=== PATIENT | female | born 1985 | race Caucasian/White ===

== ENCOUNTER 2018-11-09 11:10 | Inpatient (IN) ==
--- NOTE | 2018-11-09 12:13 | P.HP ---
History of Present Illness Service: LABOR AND DELIVERY Primary Care Physician: No Primary Care Physician Chief Complaint: OLIGHYDRAMIOUS/BREECH History of Present Illness: AMA (33 YOA), G2, 1SAB 37 WEEKS BPP 8/10, SEAN 3.5 BREECH GESTATIONAL DIABETES ON METFORMIN PRIOR TO DX, NORMOGLYCEMIC GBS IN URINE HX HSV WILL PROCEED WITH PRIMARY C SECTION - Diagnosis (1) Oligohydramnios (2) 37 weeks gestation of (3) Breech presentation (4) Gestational diabetes (5) Group B streptococcal bacteriuria Inpatient Certification: I certify that the inpatient services were ordered in accordance with Medicare regulations governing the order. This includes certification that hospital inpatient services are reasonable and necessary and in the case of services not specified as inpatient-only under 42 CFR 419.22(n), that they are appropriately provided as inpatient services in accordance to with the 2-midnight benchmark under 43 CFR 412.3(e) Estimated Total Length of Stay (Days): 3 Plans for Post Hospital Care: Home Review of Systems All other systems reviewed negative except as stated in HPI [facility] - History History Provided By: Medical Record - Medical / Surgical Hx Neg / Unobtainable Surgical History: No Previous Surgery - Medical History Medical History: Medical History (Last Updated 11/09/18 @ 12:02 by ARTEM Scott) Advanced maternal age (AMA) in Hx of herpes zoster virus - Family History Family History: Family History (Last Updated 11/09/18 @ 12:03 by ARTEM Scott) Father No problems noted. Grandparent Stroke Diabetes - Social History I have reviewed the patient's Social History: Yes - Tobacco History Second Hand Smoke Exposure: No Tobacco Use In Past 30 Days: No Smoking Status: Never smoker - Alcohol History How Often Do You Have a Drink Containing Alcohol: Never - Substance Use History Substance History: No History of Abuse - Travel History History of Recent Travel: No Recent Travel in the [place] Within the Last 8 Weeks: No Recent Travel Out of the Country Within the Last 8 Weeks: No Medications and Allergies Allergies Allergy/AdvReac Type Severity Reaction Status Date / Time No Known Allergies Allergy Unknown Uncoded 04/08/07 07:47 Exam Vital signs: Vital Signs 11/09/18 11:25 Temperature 98.5 F Pulse Rate 99 H Respiratory Rate 18 Blood Pressure 126/87 - Constitutional no acute distress - Routine HEENT Exam Head: Present: normocephalic ENT: Present: mucous membranes moist - Routine Respiratory Exam Present: CTA bilaterally - Routine Cardiovascular Exam Present: RRR, S1, S2 - Routine Abdominal Exam Present: soft, normoactive bowel sounds Comments: GRAVID - Routine Extremities Exam Present: edema Comments: +1 EDEMA TO LOWER EXTREMITIES - Routine Skin Exam Present: intact - Routine Neurological Exam Present: alert, oriented X3 Caprini VTE Risk Assessment Caprini VTE Risk Assessment: No/Low Risk (score <= 1) Caprini Risk Assessment Model: Point Value = 1 Point Value = 2 Point Value = 3 Point Value = 5 Age 41-60 Minor surgery BMI > 25 kg/m2 Swollen legs Varicose veins or History of unexplained or recurrent spontaneous Oral contraceptives or hormone replacement Sepsis (< 1 month) Serious lung disease, including pneumonia (< 1 month) Abnormal pulmonary function Acute myocardial infarction Congestive heart failure (< 1 month) History of inflammatory bowel disease Medical patient at bed rest Age 61-74 Arthroscopic surgery Major open surgery (> 45 min) Laparoscopic surgery (> 45 min) Malignancy Confined to bed (> 72 hours) Immobilizing plaster cast Central venous access Age >= 75 History of VTE Family history of VTE Factor V Leiden Prothrombin [id number] Lupus anticoagulant Anticardiolipin antibodies Elevated serum homocysteine Heparin-induced thrombocytopenia Other congenital or acquired thrombophilia Stroke (< 1 month) Elective arthroplasty Hip, pelvis, or leg fracture Acute spinal cord injury (< 1 month) Prophylaxis Regimen: Total Risk Factor Score Risk Level Prophylaxis Regimen 0-1 Low Early ambulation 2 Moderate Order ONE of the following: *Sequential Compression Device (SCD) *Heparin 5000 units SQ BID 3-4 Higher Order ONE of the following medications: *Heparin 5000 units SQ TID *Enoxaparin/Lovenox 40 mg SQ daily (WT < 150 kg, CrCl > 30 mL/min) *Enoxaparin/Lovenox 30 mg SQ daily (WT < 150 kg, CrCl > 10-29 mL/min) *Enoxaparin/Lovenox 30 mg SQ BID (WT < 150 kg, CrCl > 30 mL/min) AND/OR *Sequential Compression Device (SCD) 5 or more Highest Order ONE of the following medications: *Heparin 5000 units SQ TID (Preferred with Epidurals) *Enoxaparin/Lovenox 40 mg SQ daily (WT < 150 kg, CrCl > 30 mL/min) *Enoxaparin/Lovenox 30 mg SQ daily (WT < 150 kg, CrCl > 10-29 mL/min) *Enoxaparin/Lovenox 30 mg SQ BID (WT < 150 kg, CrCl > 30 mL/min) AND *Sequential Compression Device (SCD) Assessment and Plan - Assessment (1) Oligohydramnios Code(s): O41.00X0 - Oligohydramnios, unspecified trimester, not applicable or unspecified Status: Acute Plan: PRIMARY C SECTION (2) 37 weeks gestation of Code(s): Z3A.37 - 37 weeks gestation of Status: Acute Plan: DELIVERY (3) Breech presentation Code(s): O32.1XX0 - Maternal care for breech presentation, not applicable or unspecified Status: Acute Plan: PRIMARY C SECTION (4) Gestational diabetes Code(s): O24.419 - Gestational diabetes mellitus in , unspecified control Status: Acute Plan: MONITOR POST (5) Group B streptococcal bacteriuria Code(s): R82.71 - Bacteriuria Status: Acute - Plan FOUND IN URINE WITH 28 WEEK LABS, PRIMARY C SECTION, NO TREATMENT NEEDED Code Status: FULL CODE Discharge Planning: PLAN FOR HOME DC IN 3 DAYS (1) Oligohydramnios Qualifiers: Fetus number: single or unspecified fetus (3) Breech presentation Qualifiers: Fetus number: single or unspecified fetus Qualified Code(s): O32.1XX0 - Maternal care for breech presentation, not applicable or unspecified (4) Gestational diabetes Qualifiers: Gestational diabetes mellitus control: oral hypoglycemic-controlled
[2018-11-09] MEDS ORDERED: Citric Acid/Sodium Citrate Liq 30 ML UDC PO SCH (12:15)
[2018-11-09 12:46] LABS: Baso % (Auto) 0.2 % (0.0-2.0); Eos % (Auto) 0.3 % (0.0-4.0); Hematocrit 35.7 % (35.0-46.0); Hemoglobin 12.5 gm/dL (11.6-15.3); Lymph # (Auto) 1.1 th/mm3 (1.0-4.8); Lymph % (Auto) 11.8 % (9.0-44.0); Mean Corpuscular HGB Conc 35.1 % (32.0-36.0); Mean Corpuscular Hemoglobin 30.9 pg (27.0-34.0); Mean Corpuscular Volume 88.1 fL (80.0-100.0); Mean Platelet Volume 10.4 fL (7.0-11.0); Mono # (Auto) 0.3 th/mm3 (0.0-0.9); Mono % (Auto) 3.8 % (0.0-8.0); Neut # (Auto) 7.7 th/mm3 (1.8-7.7); Neut % (Auto) 83.9 % (16.0-70.0); Platelet Count 138 th/mm3 (150-450); Red Blood Count 4.06 mil/mm3 (4.00-5.30); Red Cell Distribution Width 13.8 % (11.6-17.2); White Blood Count 9.1 th/mm3 (4.0-11.0)
[2018-11-09 12:50] LABS: Bacteria,Urine Occasional /hpf; Bilirubin,Urine Negative (Negative); Clarity,Urine Cloudy (Clear); Color,Urine Yellow (Yellw/Straw); Glucose,Urine (UA) Negative (Negative); Leukocyte Esterase,Urine Large (Negative); Nitrite,Urine Negative (Negative); Specific Gravity,Urine 1.014 (1.002-1.035); Squamous Epithelial Cell,Urine 18 /hpf (0-5)
[2018-11-09] MEDS ORDERED: Morphine Sulfate PF Inj 5 MG/10 ML Ampul ONE (12:50)
[2018-11-09] MEDS ORDERED: fentaNYL Citrate Inj 100 MCG/2 ML Ampul ONE (12:50)
[2018-11-09] MEDS ORDERED: ceFAZolin 2 GM Premix Inj 2 GM/50 ML PIGGYBACK IV.SIG ONE (13:00)
[2018-11-09] MEDS ORDERED: Naloxone Inj 0.4 MG/ML Vial IV.PUSH PRN (13:40)
[2018-11-09] MEDS ORDERED: Zolpidem Tartrate 5 MG Tablet PO PRN (16:07)
[2018-11-09] MEDS ORDERED: Simethicone 80 MG Chew Tablet PO PRN (16:07)
--- NOTE | 2018-11-09 16:13 | P.OP ---
- Preoperative Diagnosis (1) Oligohydramnios (2) 37 weeks gestation of (3) Breech presentation (4) Gestational diabetes - Postoperative Diagnosis (1) Oligohydramnios (2) 37 weeks gestation of (3) Breech presentation (4) Gestational diabetes Date of procedure: 11/09/18 Procedure: Primary low transverse section Anesthesia: spinal Surgeon: Aleksandar Shirley MD Operation and Findings: Counts were correct Estimated blood loss 500 cc Findings normal female infant in the breech position with good normal tubes normal ovaries normal uterus. Procedure in detail Taken to the operating room identified by name band and verbally and given a regional anesthetic. She was prepped and draped in the usual sterile manner for a section. A time out was taken. A Pfannenstiel incision was made and carried down to the fascia the fascia was nicked bilaterally and the fascia was taken off the rectus muscle by blunt and sharp dissection. The rectus muscles were spread bluntly and the peritoneum was entered under direct vision. The incision was extended with care to avoid the urinary bladder. A bladder blade was placed and a bladder flap was created in the usual fashion. The lower uterine segment was then incised sharply in a transverse manner and taken down in the midline until the uterine cavity was entered. The incision was extended with the surgeon's fingers. The breech was grasped and with gentle fundal pressure the breech was delivered thorax was then delivered the arms were reduced and again with gentle fundal pressure the vertex was delivered without difficulty. The hypopharynx and nasopharynx were suctioned. The cord clamping was delayed 45 seconds and then the cord was clamped cut and the was handed over to the resuscitation team cord blood was obtained the placenta was removed manually and the uterus was curettaged twice with a wet lap. The uterus was delivered from the abdomen. The uterine incision was repaired with 0 Vicryl in a running fashion in 2 layers the second layer imbricating the first. The cul-de-sac and gutters were cleaned of blood and debris the uterus was delivered back into the abdomen. The rectus muscles were reapproximated with 0 Vicryl in a running the fascia was repaired with 0 Vicryl from lateral to midline bilaterally. The subcutaneous layer was repaired with a 3-0 Vicryl. The skin was repaired with a 4-0 Monocryl in a subcuticular manner. Patient tolerated the procedure well and went to recovery room in good condition.
[2018-11-09] MEDS ORDERED: Oxytocin 30 Units/500ml Premix 30 UNITS/500 ML BAG IV.SIG ONE (16:30)
[2018-11-09 20:55] VITALS: RESP 18
[2018-11-09] MEDS ORDERED: Oxytocin 30 Units/500ml Premix 30 UNITS/500 ML BAG IV.SIG PRN (21:07)
[2018-11-09] MEDS: ceFAZolin Inj 1 GM in Sodium Chlor 0.9% Inj 100 ML IV.SIG SCH (22:25)
[2018-11-10] MEDS: ceFAZolin Inj 1 GM in Sodium Chlor 0.9% Inj 100 ML IV.SIG SCH (05:35)
[2018-11-10 05:59] LABS: Baso % (Auto) 0.4 % (0.0-2.0); Eos # (Auto) 0.1 th/mm3 (0.0-0.4); Eos % (Auto) 0.5 % (0.0-4.0); Hematocrit 32.1 % (35.0-46.0); Hemoglobin 10.7 gm/dL (11.6-15.3); Lymph # (Auto) 0.9 th/mm3 (1.0-4.8); Lymph % (Auto) 8.6 % (9.0-44.0); Mean Corpuscular HGB Conc 33.5 % (32.0-36.0); Mean Corpuscular Volume 89.7 fL (80.0-100.0); Mean Platelet Volume 10.2 fL (7.0-11.0); Mono # (Auto) 0.6 th/mm3 (0.0-0.9); Mono % (Auto) 5.4 % (0.0-8.0); Neut # (Auto) 8.6 th/mm3 (1.8-7.7); Neut % (Auto) 85.1 % (16.0-70.0); Platelet Count 108 th/mm3 (150-450); Red Blood Count 3.58 mil/mm3 (4.00-5.30); Red Cell Distribution Width 13.4 % (11.6-17.2); White Blood Count 10.2 th/mm3 (4.0-11.0)
--- NOTE | 2018-11-10 08:05 | P.PNOB ---
Subjective Post op day: 1 Interval history: doing well, Objective Vital Signs/I&O: Vital Signs 11/09/18 11:25 11/09/18 13:13 11/09/18 13:14 Temperature 98.5 F 98.7 F Pulse Rate 99 H 82 Respiratory Rate 18 18 Blood Pressure 126/87 126/80 11/09/18 15:15 11/09/18 15:30 11/09/18 15:45 Temperature 97.8 F Pulse Rate 80 79 88 Respiratory Rate 18 18 18 Blood Pressure 108/70 110/69 110/72 11/09/18 16:00 11/09/18 16:12 11/09/18 16:15 Temperature 98.1 F Pulse Rate 85 80 Respiratory Rate 18 18 Blood Pressure 119/77 11/09/18 17:00 11/09/18 20:00 11/10/18 00:00 Temperature 98.2 F 98.1 F 98.2 F Pulse Rate 89 69 108 H Respiratory Rate 20 18 18 Blood Pressure 120/72 136/68 124/72 11/10/18 04:15 Temperature 98.4 F Pulse Rate 82 Respiratory Rate 18 Blood Pressure 120/73 Intake & Output 11/09/18 11/10/18 11/10/18 18:59 06:59 18:59 Intake Total 100 / 100 Balance 100 / 100 Weight 117.48 kg Intake: IV 100 / 100 Ancef Inj 1 GM In NS Inj 100 ML 100 / 100 @ 200 mls/hr IV.SIG Q8H [facility] Rx #:[id number] Result Diagrams: 11/10/18 05:34 Objective Remarks: GENERAL: Well-nourished, well-developed patient. CARDIOVASCULAR: Regular rate and rhythm without murmurs, gallops, or rubs. RESPIRATORY: Breath sounds equal bilaterally. No accessory muscle use. ABDOMEN/GI: Abdomen soft, non-tender, bowel sounds present. Incision: dressing Clean, dry and intact. Fundus: Firm, non-tender at umbilicus. GENITOURINARY: Light to moderate bleeding. EXTREMITIES: No cyanosis or edema, non-tender, without signs of DVT. 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 SWITCH TESTER [facility] Stop: 11/13/18 12:14 Diphenhydramine HCl (Benadryl Inj) 25 mg IV.PUSH Q6H PRN PRN Reason: MILD TO MODERATE ITCHING Stop: 11/10/18 13:39 Diphenhydramine HCl (Benadryl) 50 mg PO Q6H PRN PRN Reason: MILD TO MODERATE ITCHING Stop: 11/10/18 13:39 Diphtheria/Pertussis/Tetanus Vacc (Boostrix Vaccine Inj) 0.5 ml IM .ONCE ONE Stop: 11/10/18 16:01 Lactated Ringer's (Lr 1000 Ml Inj) 1,000 mls @ 100 mls/hr IV.CONT .Q10H [facility] Stop: 11/10/18 17:06 Last Admin: 11/10/18 02:24 Dose: 100 mls/hr Oxytocin (Pitocin 30 Units/Ns 500 Ml Premix) 30 units in 500 mls @ 100 mls/hr IV.SIG UNSCH PRN PRN Reason: Heavy bleeding Ibuprofen (Motrin) 800 mg PO Q8H PRN PRN Reason: cramping Last Admin: 11/09/18 21:11 Dose: 800 mg Measles/Mumps/Rubella Vaccine Live (M-M-R Ii Vaccine Inj) 0.5 ml SQ .ONCE ONE Stop: 11/10/18 16:01 Metformin HCl (Glucophage) 1,000 mg PO BID [facility] Last Admin: 11/09/18 21:08 Dose: 1,000 mg Miscellaneous Information (Misc Nursing Information) 1 each OTHER UNSCH PRN PRN Reason: SEE LABEL COMMENTS Stop: 11/10/18 13:39 Miscellaneous Information (Misc Nursing Information) 1 each OTHER UNSCH PRN PRN Reason: SEE LABEL COMMENTS Stop: 11/10/18 13:39 Naloxone HCl (Narcan Inj) 0.4 mg IV.PUSH UNSCH PRN PRN Reason: SEE LABEL COMMENTS Stop: 11/10/18 13:39 Ondansetron HCl (Zofran Inj) 4 mg IV.PUSH Q6H PRN PRN Reason: NAUSEA OR VOMITING Oxycodone/Acetaminophen (Percocet 5/325 Mg) 1 tab PO Q4H PRN PRN Reason: PAIN SCALE 3 TO 5 Last Admin: 11/10/18 04:24 Dose: 1 tab Oxycodone/Acetaminophen (Percocet 5/325 Mg) 2 tab PO Q4H PRN PRN Reason: PAIN SCALE 6 TO 10 Vit/Calcium/Iron/Folic Ac (Stuartnatal Plus 3) 1 tab PO DAILY MARY JO Senna/Docusate Sodium (Mary-Colace) 2 tab PO Q12H PRN PRN Reason: CONSTIPATION Simethicone (Mylicon Chew) 80 mg PO QID PRN PRN Reason: FLATULENCE Sodium Chloride (Ns Flush) 2 ml IV.FLUSH BID MARY JO Last Admin: 11/09/18 23:29 Dose: Not Given Sodium Chloride (Ns Flush) 2 ml IV.FLUSH UNSCH PRN PRN Reason: FLUSH AFTER USING IV ACCESS Zolpidem Tartrate (Ambien) 5 mg PO HS PRN PRN Reason: INSOMNIA Assessment and Plan - Diagnosis (1) delivery delivered Code(s): O82 - Encounter for delivery without indication Status: Acute (2) Oligohydramnios Code(s): O41.00X0 - Oligohydramnios, unspecified trimester, not applicable or unspecified Status: Acute (3) 37 weeks gestation of Code(s): Z3A.37 - 37 weeks gestation of Status: Acute (4) Breech presentation Code(s): O32.1XX0 - Maternal care for breech presentation, not applicable or unspecified Status: Acute (5) Gestational diabetes Code(s): O24.419 - Gestational diabetes mellitus in , unspecified control Status: Acute - Plan S/P C/S for breech, oligo POD #1 doing well encourage ambulation, reg diet, po fluids pain meds prn Discharge Planning: POD #3 - Attending Attestation pt seen by wa (2) Oligohydramnios Qualifiers: Fetus number: single or unspecified fetus (4) Breech presentation Qualifiers: Fetus number: single or unspecified fetus Qualified Code(s): O32.1XX0 - Maternal care for breech presentation, not applicable or unspecified (5) Gestational diabetes Qualifiers: Gestational diabetes mellitus control: oral hypoglycemic-controlled
[2018-11-10] MEDS: Prenatal Vit/Ca/Iron/Folic Acid Tablet PO SCH (08:20)
[2018-11-10] MEDS: Senna/Docusate Sodium 8.6/50 MG Tablet PO PRN ×2 (08:21→20:59)
[2018-11-10] MEDS ORDERED: Diphtheria/Tetanus/Pertussis Vaccine Inj 0.5 ML Syringe IM ONE (16:00)
[2018-11-10] MEDS ORDERED: Measles/Mumps/Rubella Vaccine Inj 0.5 ML Vial SQ ONE (16:00)
[2018-11-11 07:45] VITALS: BP 109/71; PULSE 80; TEMP 98.2
[2018-11-11] MEDS: Senna/Docusate Sodium 8.6/50 MG Tablet PO PRN (08:15)
[2018-11-11] MEDS: Prenatal Vit/Ca/Iron/Folic Acid Tablet PO SCH (08:15)
--- NOTE | 2018-11-11 10:59 | P.PNOB ---
Subjective Post op day: 2 Interval history: doing well, no complaints Objective Vital Signs/I&O: Vital Signs 11/10/18 12:35 11/10/18 13:15 11/10/18 20:00 Temperature 97.6 F 98.3 F Pulse Rate 112 H 87 Respiratory Rate 18 18 Blood Pressure 114/72 113/74 11/11/18 07:44 Temperature 98.2 F Pulse Rate 80 Respiratory Rate 18 Blood Pressure 109/71 Result Diagrams: 11/10/18 05:34 Objective Remarks: GENERAL: Well-nourished, well-developed patient. CARDIOVASCULAR: Regular rate and rhythm without murmurs, gallops, or rubs. RESPIRATORY: Breath sounds equal bilaterally. No accessory muscle use. ABDOMEN/GI: Abdomen soft, non-tender, bowel sounds present. Incision: Clean, dry and intact. Fundus: Firm, non-tender at umbilicus. GENITOURINARY: Light to moderate bleeding. EXTREMITIES: No cyanosis or edema, non-tender, without signs of DVT. 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 [facility] Stop: 11/13/18 12:14 Oxytocin (Pitocin 30 Units/Ns 500 Ml Premix) 30 units in 500 mls @ 100 mls/hr IV.SIG UNSCH PRN PRN Reason: Heavy bleeding Ibuprofen (Motrin) 800 mg PO Q8H PRN PRN Reason: cramping Last Admin: 11/11/18 02:53 Dose: 800 mg Metformin HCl (Glucophage) 1,000 mg PO BID [facility] Last Admin: 11/11/18 08:15 Dose: 1,000 mg Ondansetron HCl (Zofran Inj) 4 mg IV.PUSH Q6H PRN PRN Reason: NAUSEA OR VOMITING Oxycodone/Acetaminophen (Percocet 5/325 Mg) 1 tab PO Q4H PRN PRN Reason: PAIN SCALE 3 TO 5 Last Admin: 11/10/18 04:24 Dose: 1 tab Oxycodone/Acetaminophen (Percocet 5/325 Mg) 2 tab PO Q4H PRN PRN Reason: PAIN SCALE 6 TO 10 Last Admin: 11/11/18 08:15 Dose: 2 tab Vit/Calcium/Iron/Folic Ac (Stuartnatal Plus 3) 1 tab PO DAILY [facility] Last Admin: 11/11/18 08:15 Dose: 1 tab Senna/Docusate Sodium (Mary-Colace) 2 tab PO Q12H PRN PRN Reason: CONSTIPATION Last Admin: 11/11/18 08:15 Dose: 2 tab Simethicone (Mylicon Chew) 80 mg PO QID PRN PRN Reason: FLATULENCE Sodium Chloride (Ns Flush) 2 ml IV.FLUSH BID MARY JO Last Admin: 11/10/18 22:18 Dose: Not Given Sodium Chloride (Ns Flush) 2 ml IV.FLUSH UNSCH PRN PRN Reason: FLUSH AFTER USING IV ACCESS Zolpidem Tartrate (Ambien) 5 mg PO HS PRN PRN Reason: INSOMNIA Assessment and Plan - Diagnosis (1) delivery delivered Code(s): O82 - Encounter for delivery without indication Status: Acute (2) Oligohydramnios Code(s): O41.00X0 - Oligohydramnios, unspecified trimester, not applicable or unspecified Status: Acute (3) 37 weeks gestation of Code(s): Z3A.37 - 37 weeks gestation of Status: Acute (4) Breech presentation Code(s): O32.1XX0 - Maternal care for breech presentation, not applicable or unspecified Status: Acute (5) Gestational diabetes Code(s): O24.419 - Gestational diabetes mellitus in , unspecified control Status: Acute - Plan S/P C/S for breech, oligo POD #2 doing well encourage ambulation, po fluids pain meds prn Discharge Planning: POD #3 - Attending Attestation pt seen by pa (2) Oligohydramnios Qualifiers: Fetus number: single or unspecified fetus (4) Breech presentation Qualifiers: Fetus number: single or unspecified fetus Qualified Code(s): O32.1XX0 - Maternal care for breech presentation, not applicable or unspecified (5) Gestational diabetes Qualifiers: Gestational diabetes mellitus control: oral hypoglycemic-controlled
== END 2018-11-11 13:38 | disposition home or self-care (01) | DRG 787 ==
LOC: H2E 11:10 → H1EA 16:44
PROVIDERS: ADMIT Obstetrics & Gynecology; ATTEND Obstetrics & Gynecology
CPT/HCPCS: 59025; 76818; 81001; 82948; 82962; 85025; 86850; 86900; 86901; 87086; J0690; J2274; J2590; J3010; J7120